=== PATIENT | male | born 1980 | race Caucasian/White ===

== ENCOUNTER 2018-02-04 15:15 | Emergency (ER) | payer MEDICAID ==
[~2018-02-04] VITALS: Ht 170.2 cm; Wt 84.1 kg
[2018-02-04] MEDS ORDERED: DiphenhydrAMINE HCL 25 MG CAPSULE PO ONE (16:00)
[2018-02-04] MEDS ORDERED: DEXAMETHASONE 4 MG TABLET PO ONE (16:00)
[2018-02-04] MEDS ORDERED: DiphenhydrAMINE/ZINC ACET 30 GM CREAM TP ONE (16:00)
[2018-02-04 16:41] VITALS: BP 141/89
== END 2018-02-04 16:42 | disposition home or self-care (01) ==
LOC: EMS 15:16
DX: L25.9 Unspecified contact dermatitis, unspecified cause (principal); L55.9 Sunburn, unspecified; F17.210 Nicotine dependence, cigarettes, uncomplicated; F15.10 Other stimulant abuse, uncomplicated
CPT/HCPCS: 99284; 99406; J8540

== ENCOUNTER 2018-10-16 09:26 | Emergency (ER) | payer MEDICAID ==
[~2018-10-16] VITALS: Ht 182.9 cm; Wt 100.0 kg
[2018-10-16] MEDS ORDERED: FLUORESCEIN SODIUM 1 MG STRIP OD ONE (10:45)
[2018-10-16 11:26] VITALS: BP 149/99
== END 2018-10-16 11:42 | disposition home or self-care (01) ==
LOC: EMS 09:26
DX: H00.13 Chalazion right eye, unspecified eyelid (principal); F17.210 Nicotine dependence, cigarettes, uncomplicated; F15.90 Other stimulant use, unspecified, uncomplicated